=== PATIENT | female | born 1980 | race Asian ===

== ENCOUNTER 2018-08-25 10:35 | Inpatient (IN) ==
[2018-08-25] MEDS ORDERED: ONDANSETRON INJ 2 MG/ML 2 ML VIAL IV STA (11:29)
[2018-08-25] MEDS ORDERED: MoRPHine SULFATE 4 MG/ML 1 ML CARP\\VIAL IV STA (11:29)
[2018-08-25] MEDS ORDERED: SODIUM CHLORIDE 0.9% 1000ML 1,000 ML IV ONE (11:29)
[2018-08-25 12:02] LABS: Basophils # (auto) 0.01 K/uL (0-0.2); Basophils % (auto) 0.1 %; Hemoglobin 11.7 g/dL (12.0-16.0); Immature Granulocytes # (auto) 0.02 K/uL (0.00-0.02); Immature Granulocytes % (auto) 0.2 %; Lymphocytes # (auto) 0.58 K/uL (1.2-3.4); Lymphocytes % (auto) 5.5 %; Mean Corpuscular Hgb Conc 33.4 g/dL (32-36); Mean Corpuscular Volume 91.6 fL (80-100); Mean Platelet Volume 8.9 fL (7.4-10.4); Monocytes # (auto) 0.36 K/uL (0.11-0.59); Monocytes % (auto) 3.4 %; Neutrophils # (auto) 9.59 K/uL (1.4-6.5); Neutrophils % (auto) 90.8 %; Platelet Count 287 K/uL (130-400); RDW Coefficient of Variation 12.9 % (11.5-14.5); RDW Standard Deviation 43.1 fL (36.4-46.3); Red Blood Count 3.82 M/uL (4.2-5.4); White Blood Count 10.56 K/uL (4.8-10.8)
[2018-08-25 12:18] LABS: Alanine Aminotransferase 15 U/L (12-78); Albumin Level 3.6 gm/dl (3.4-5.0); Aspartate Aminotransferase 12 U/L (15-37); BUN Creatinine Ratio 22.3 (10-20); Blood Urea Nitrogen 15 mg/dl (7-18); Calcium 8.3 mg/dl (8.5-10.1); Carbon Dioxide 24 mmol/L (21-32); Chloride 105 mmol/L (98-107); Est GFR (African American) 126.2; Est GFR (Non-African American) 108.9; Glucose 101 mg/dl (70-99); Sodium 138 mmol/L (136-145)
[2018-08-25 12:22] LABS: Albumin Globulin Ratio 1.1 (0.9-2); Alkaline Phosphatase 38 U/L (45-117); Bilirubin,Total 1.7 mg/dl (0.2-1); Globulin 3.3 gm/dl (2.5-4.0); Total Protein 6.9 gm/dl (6.4-8.2); Troponin I < 0.015 ng/ml (0-0.045)
[2018-08-25 12:24] LABS: Prothrombin Time 10.4 Seconds (9.0-12.0)
[2018-08-25] MEDS ORDERED: IOVERSOL 100ml IV PRN (12:32)
[2018-08-25 12:34] LABS: D Dimer 3750 ug/L FEU (0-500)
--- NOTE | 2018-08-25 12:34 | Emergency Department Note ---
History of Present Illness General Chief complaint: Abdominal Pain Stated complaint: DIZZY,STOMACH PAIN,VOMITING,DEHYDRATION,HTN Time Seen by Provider: 08/25/18 10:50 History of Present Illness Maximum Pain Intensity: 8 38-year-old female who presents to emergency department for evaluation of epigastric pain, projectile vomiting, headache, dizziness and feeling dehydrated. The patient reports that her symptoms started yesterday afternoon, and have progressively worsened. The patient reports that she has been chilled, but has not checked her temperature. The patient reports that she had similar symptoms approximately 2 weeks ago as well, but symptoms did improve. The patient denies any recent constipation or diarrhea. She also denies any dark stools, coffee-ground emesis, chest pain, shortness of breath or urinary symptoms. The patient denies . 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 She denies prior history of GERD or peptic ulcers. The patient currently rates her discomfort an 8 out of 10. The patient was seen at [facility] this morning, and referred to the emergency department for further evaluation. Home Medications Home Medications Medication Instructions Recorded Confirmed Type No Known Home Medications 08/25/18 08/25/18 History Allergies Allergy/AdvReac Type Severity Reaction Status Date / Time No Known Allergies Allergy Unverified 08/25/18 11:32 Past Med/Surg History Medical History No significant past medical history Surgical History No significant past surgical history Social History marital status: Single Current Living Situation: Alone current occupational status: student Feels Safe at Home: Yes Smoking Status: Never smoker Hx Alcohol Use: No Hx Substance Use: No Review of Systems HEENT: Denies visual problems, hearing loss, tinnitus. Denies difficulty swallowing or oral lesions. PULMONARY: Denies recent cough, shortness of breath, sputum production or hemoptysis. CARDIOVASCULAR: Denies recent palpitations, dyspnea on exertion, orthopnea or peripheral edema. GASTROINTESTINAL: Denies recent diarrhea or constipation, otherwise see HPI. GENITOURINARY: Denies dysuria, frequency, urgency or nocturia. NEUROLOGIC: Denies history of epilepsy, CVA, TIA or chronic headaches. MUSCULOSKELETAL: Denies history of joint tenderness/swelling. SKIN: Denies rashes or lesions. PSYCHIATRIC: Denies history of depression or mental illness. ENDOCRINE: Denies history of diabetes or thyroid disorders. Physical Exam Vital Signs Vital Signs - 24 hr 08/25/18 10:47 08/25/18 10:55 08/25/18 11:00 Temperature 36.7 C Temperature Source Oral Sepsis Recent Fever Within 48 Hours No Sepsis New/Unexplained Change in Mental Status No Sepsis Action Taken by Nursing No Action Required End-Tidal CO2 12 15 Pulse Rate 97 H 102 H 94 H Pulse Rate [Finger] Pulse Rate from SpO2 Sensor 103 H 97 H Respiratory Rate 20 Blood Pressure 113/59 L 113/59 L Blood Pressure [Right Arm] Blood Pressure Mean 77 77 Blood Pressure Mean [Right Arm] Blood Pressure Position Lying Pulse Oximetry 100 100 98 Oxygen Delivery Method Room Air 08/25/18 11:01 08/25/18 11:10 08/25/18 11:15 Temperature Temperature Source Sepsis Recent Fever Within 48 Hours Sepsis New/Unexplained Change in Mental Status Sepsis Action Taken by Nursing End-Tidal CO2 19 23 26 Pulse Rate 96 H 92 H 87 Pulse Rate [Finger] Pulse Rate from SpO2 Sensor 96 H 93 H 87 Respiratory Rate Blood Pressure 94/73 L 99/66 L Blood Pressure [Right Arm] Blood Pressure Mean 80 77 Blood Pressure Mean [Right Arm] Blood Pressure Position Pulse Oximetry 100 97 98 Oxygen Delivery Method 08/25/18 11:20 08/25/18 11:30 08/25/18 11:40 Temperature Temperature Source Sepsis Recent Fever Within 48 Hours Sepsis New/Unexplained Change in Mental Status Sepsis Action Taken by Nursing End-Tidal CO2 30 36 33 Pulse Rate 87 90 89 Pulse Rate [Finger] Pulse Rate from SpO2 Sensor 87 90 90 Respiratory Rate Blood Pressure 98/69 L Blood Pressure [Right Arm] Blood Pressure Mean 78 Blood Pressure Mean [Right Arm] Blood Pressure Position Pulse Oximetry 97 98 99 Oxygen Delivery Method Room Air Room Air 08/25/18 11:45 08/25/18 11:50 08/25/18 12:00 Temperature Temperature Source Sepsis Recent Fever Within 48 Hours Sepsis New/Unexplained Change in Mental Status Sepsis Action Taken by Nursing End-Tidal CO2 30 34 32 Pulse Rate 102 H 95 H 89 Pulse Rate [Finger] Pulse Rate from SpO2 Sensor 102 H 94 H 88 Respiratory Rate Blood Pressure 102/67 98/67 L Blood Pressure [Right Arm] Blood Pressure Mean 78 77 Blood Pressure Mean [Right Arm] Blood Pressure Position Pulse Oximetry 98 98 98 Oxygen Delivery Method Room Air Room Air Room Air 08/25/18 12:10 08/25/18 12:15 08/25/18 12:20 Temperature Temperature Source Sepsis Recent Fever Within 48 Hours Sepsis New/Unexplained Change in Mental Status Sepsis Action Taken by Nursing End-Tidal CO2 33 34 34 Pulse Rate 90 87 88 Pulse Rate [Finger] Pulse Rate from SpO2 Sensor 90 88 88 Respiratory Rate Blood Pressure 99/62 L Blood Pressure [Right Arm] Blood Pressure Mean 74 Blood Pressure Mean [Right Arm] Blood Pressure Position Pulse Oximetry 97 97 97 Oxygen Delivery Method Room Air Room Air Room Air 08/25/18 12:30 08/25/18 12:40 08/25/18 12:50 Temperature Temperature Source Sepsis Recent Fever Within 48 Hours Sepsis New/Unexplained Change in Mental Status Sepsis Action Taken by Nursing End-Tidal CO2 Pulse Rate 99 H 99 H Pulse Rate [Finger] Pulse Rate from SpO2 Sensor 98 H 98 H Respiratory Rate Blood Pressure Blood Pressure [Right Arm] Blood Pressure Mean Blood Pressure Mean [Right Arm] Blood Pressure Position Pulse Oximetry 99 100 Oxygen Delivery Method Room Air Room Air Room Air 08/25/18 13:00 08/25/18 13:10 08/25/18 13:17 Temperature Temperature Source Sepsis Recent Fever Within 48 Hours Sepsis New/Unexplained Change in Mental Status Sepsis Action Taken by Nursing End-Tidal CO2 Pulse Rate 88 86 88 Pulse Rate [Finger] 87 Pulse Rate from SpO2 Sensor 89 87 88 Respiratory Rate 20 Blood Pressure 93/56 L Blood Pressure [Right Arm] 93/56 L Blood Pressure Mean 68 Blood Pressure Mean [Right Arm] 68 Blood Pressure Position Pulse Oximetry 99 98 99 Oxygen Delivery Method Room Air Room Air Room Air 08/25/18 13:20 08/25/18 13:30 08/25/18 13:40 Temperature Temperature Source Sepsis Recent Fever Within 48 Hours Sepsis New/Unexplained Change in Mental Status Sepsis Action Taken by Nursing End-Tidal CO2 Pulse Rate 88 86 84 Pulse Rate [Finger] Pulse Rate from SpO2 Sensor 88 87 85 Respiratory Rate Blood Pressure 92/55 L 92/55 L Blood Pressure [Right Arm] Blood Pressure Mean 67 67 Blood Pressure Mean [Right Arm] Blood Pressure Position Pulse Oximetry 98 99 99 Oxygen Delivery Method Room Air Room Air Room Air 08/25/18 13:45 08/25/18 13:50 08/25/18 14:00 Temperature Temperature Source Sepsis Recent Fever Within 48 Hours Sepsis New/Unexplained Change in Mental Status Sepsis Action Taken by Nursing End-Tidal CO2 Pulse Rate 87 86 85 Pulse Rate [Finger] Pulse Rate from SpO2 Sensor 87 88 85 Respiratory Rate Blood Pressure 89/58 L 94/60 L Blood Pressure [Right Arm] Blood Pressure Mean 68 71 Blood Pressure Mean [Right Arm] Blood Pressure Position Pulse Oximetry 99 99 99 Oxygen Delivery Method Room Air Room Air Room Air 08/25/18 14:10 08/25/18 14:15 08/25/18 14:20 Temperature Temperature Source Sepsis Recent Fever Within 48 Hours Sepsis New/Unexplained Change in Mental Status Sepsis Action Taken by Nursing End-Tidal CO2 Pulse Rate 84 89 82 Pulse Rate [Finger] Pulse Rate from SpO2 Sensor 83 88 85 Respiratory Rate Blood Pressure 89/58 L Blood Pressure [Right Arm] Blood Pressure Mean 68 Blood Pressure Mean [Right Arm] Blood Pressure Position Pulse Oximetry 98 99 98 Oxygen Delivery Method Room Air Room Air Room Air 08/25/18 15:05 08/25/18 15:10 08/25/18 15:15 Temperature Temperature Source Sepsis Recent Fever Within 48 Hours Sepsis New/Unexplained Change in Mental Status Sepsis Action Taken by Nursing End-Tidal CO2 Pulse Rate 83 86 93 H Pulse Rate [Finger] 82 Pulse Rate from SpO2 Sensor 84 87 93 H Respiratory Rate 12 Blood Pressure 96/58 L 91/63 L Blood Pressure [Right Arm] 96/58 L Blood Pressure Mean 70 72 Blood Pressure Mean [Right Arm] 70 Blood Pressure Position Pulse Oximetry 98 98 99 Oxygen Delivery Method Room Air 08/25/18 15:20 08/25/18 15:30 08/25/18 15:40 Temperature Temperature Source Sepsis Recent Fever Within 48 Hours Sepsis New/Unexplained Change in Mental Status Sepsis Action Taken by Nursing End-Tidal CO2 Pulse Rate 89 84 82 Pulse Rate [Finger] Pulse Rate from SpO2 Sensor 89 84 83 Respiratory Rate Blood Pressure 85/60 L Blood Pressure [Right Arm] Blood Pressure Mean 68 Blood Pressure Mean [Right Arm] Blood Pressure Position Pulse Oximetry 98 99 100 Oxygen Delivery Method 08/25/18 15:45 08/25/18 15:50 08/25/18 16:00 Temperature Temperature Source Sepsis Recent Fever Within 48 Hours Sepsis New/Unexplained Change in Mental Status Sepsis Action Taken by Nursing End-Tidal CO2 Pulse Rate 79 76 81 Pulse Rate [Finger] Pulse Rate from SpO2 Sensor 78 76 80 Respiratory Rate Blood Pressure 89/56 L 82/57 L Blood Pressure [Right Arm] Blood Pressure Mean 67 65 Blood Pressure Mean [Right Arm] Blood Pressure Position Pulse Oximetry 100 99 100 Oxygen Delivery Method CONSTITUTIONAL: Healthy and well nourished. Alert and oriented X 3. Patient appears in moderate discomfort. HEENT: Normocephalic, atraumatic. Pupils equal, round and reactive. No scleral icterus or conjunctival injection/pallor. Mucous membranes are dry. NECK: Full active range of motion without discomfort. LYMPHATICS: No cervical chain adenopathy. RESPIRATORY: Clear to auscultation bilaterally with no wheezing, crackles, rhonchi or stridor. CARDIOVASCULAR: Regular rate and rhythm with no murmurs, rubs or gallops. GASTROINTESTINAL: Bowel sounds are hypoactive. Epigastric tenderness to palpation is noted without obvious hepatosplenomegaly. Negative CVA tenderness. Negative McBurney's point tenderness. No abdominal rigidity, guarding or rebound. MUSCULOSKELETAL: Full range of motion of all joints without discomfort. INTEGUMENTARY: No rash or other significant dermatologic conditions noted. HEMATOLOGIC: No ecchymosis or petechiae. PSYCHIATRIC: Positive affect. NEUROLOGIC: No focal neurologic deficits noted. Course Patient history and physical exam were performed. Nurse's notes were reviewed. Vital signs were reviewed, showing a blood pressure of 98/67. The patient does not recall what her baseline blood pressure is. IV access was established, and labs were drawn. The patient was hydrated with a liter normal saline, and was administered IV Zantac and Zofran. An ECG shows inverted T waves in anteroseptal leads. With GI etiology suspected, CT of the abdomen and pelvis with IV contrast was ordered. It was only after the CT was performed that labs were completed, showing an elevated d-dimer. CT scan of the abdomen and pelvis shows wall thickening of multiple small bowel loops, consistent with a nonspecific enteritis. The patient did report improvement of symptoms with IV medications and IV hydration. Further review of labs also shows a hypokalemia with potassium of 3. The case was then discussed with Dr. Blackman, ED attending physician, who indicated that the patient may benefit from observation and further CT angiography to be performed tomorrow. He did recommend that I confirm this with our radiologist regarding timing from IV contrast studies of the abdomen and CT angiography. I then discussed the case further with Dr. Coleman who also c onfirmed that they would rather wait [address] angiography of the chest to rule out pulmonary embolus. The case was then further discussed with Dr. Tobias, [facility] hospitalist, for further reevaluation. Please see her dictation for further treatment and final di sposition. The patient was ordered potassium chloride 20 mEq via K rider infusion prior to transfer of care. Administered Medications Potassium Acetate 20 meq/ (Sodium Chloride) 110 mls @ 55 mls/hr IV Q2H CRISS Stop: 08/25/18 19:44 Last Admin: 08/25/18 16:19 Dose: 55 mls/hr Documented by: [id number] Ioversol (Optiray 320 100ml) 92 ml IV ONCE PRN PRN Reason: Interaction Checking Stop: 08/29/18 12:31 Last Admin: 08/25/18 12:33 Dose: 92 ml Documented by: [id number] Discontinued Medications Ranitidine HCl 50 mg/ Dextrose 102 mls @ 200 mls/hr IV NOW STA Stop: 08/25/18 11:59 Last Infusion: 08/25/18 12:19 Dose: 0 mls/hr Documented by: [id number] Admin: 08/25/18 11:48 Dose: 200 mls/hr Documented by: [id number] Sodium Chloride (Nss 1000ml) 1,000 mls @ 999 mls/hr IV .Q1H1M ONE Stop: 08/25/18 12:29 Last Infusion: 08/25/18 13:15 Dose: 0 mls/hr Documented by: [id number] Admin: 08/25/18 11:30 Dose: 999 mls/hr Documented by: [id number] Morphine Sulfate (Morphine Sulfate) 4 mg IV NOW STA Stop: 08/25/18 11:30 Last Admin: 08/25/18 13:20 Dose: Not Given Documented by: [id number] Ondansetron HCl (Zofran) 4 mg IV NOW STA Stop: 08/25/18 11:30 Last Admin: 08/25/18 11:48 Dose: 4 mg Documented by: [id number] Medical Decision Making Medical Records Attestation: I reviewed the patient's medical records. Home Medications Current Medication List: was personally reviewed by ia Laboratory Data Attestation: I reviewed the patient's lab results. Result diagrams: 08/25/18 11:46 08/25/18 11:46 Lab Results 08/25/18 08/25/18 08/25/18 Range/Units 11:46 11:46 11:46 WBC 10.56 (4.8-10.8) K/uL RBC 3.82 L (4.2-5.4) M/uL Hgb 11.7 L (12.0-16.0) g/dL Hct 35.0 L (37-47) % MCV 91.6 (80-100) fL MCH 30.6 (25-34) pg MCHC 33.4 (32-36) g/dL RDW Std Deviation 43.1 (36.4-46.3) fL RDW Coeff of Franky 12.9 (11.5-14.5) % Plt Count 287 (130-400) K/uL MPV 8.9 (7.4-10.4) fL Immature Gran % (Auto) 0.2 % Neut % (Auto) 90.8 % Lymph % (Auto) 5.5 % Rice % (Auto) 3.4 % Eos % (Auto) 0.0 % Baso % (Auto) 0.1 % Immature Gran # (Auto) 0.02 (0.00-0.02) K/uL Neut # (Auto) 9.59 H (1.4-6.5) K/uL Lymph # (Auto) 0.58 L (1.2-3.4) K/uL Rice # (Auto) 0.36 (0.11-0.59) K/uL Eos # (Auto) 0.00 (0-0.5) K/uL Baso # (Auto) 0.01 (0-0.2) K/uL PT 10.4 (9.0-12.0) Seconds INR 1.0 (0.9-1.1) D-Dimer 3750 H* (0-500) ug/L FEU Sodium 138 (136-145) mmol/L Potassium 3.0 L (3.5-5.1) mmol/L Chloride 105 (98-107) mmol/L Carbon Dioxide 24 (21-32) mmol/L Anion Gap 8.0 (3-11) BUN 15 (7-18) mg/dl Creatinine 0.69 (0.6-1.2) mg/dl Est Cr Clr Drug Dosing Not Reportable Est GFR ( Amer) 126.2 Est GFR (Non-Af Amer) 108.9 BUN/Creatinine Ratio 22.3 H (10-20) Glucose 101 H (70-99) mg/dl Calcium 8.3 L (8.5-10.1) mg/dl Total Bilirubin 1.7 H (0.2-1) mg/dl AST 12 L (15-37) U/L ALT 15 (12-78) U/L Alkaline Phosphatase 38 L (45-117) U/L Troponin I < 0.015 (0-0.045) ng/ml Total Protein 6.9 (6.4-8.2) gm/dl Albumin 3.6 (3.4-5.0) gm/dl Globulin 3.3 (2.5-4.0) gm/dl Albumin/Globulin Ratio 1.1 (0.9-2) Lipase 157 (73-393) U/L Urine Color Urine Appearance (Clear) Urine pH (4.5-7.5) Ur Specific Agra (1.000-1.030) Urine Protein (Negative) Urine Glucose (UA) (Negative) Urine Ketones (Negative) Urine Blood (Negative) Urine Nitrite (Negative) Urine Bilirubin (Negative) Urine Urobilinogen (Negative) Ur Leukocyte Esterase (Negative) 08/25/18 Range/Units 17:50 WBC (4.8-10.8) K/uL RBC (4.2-5.4) M/uL Hgb (12.0-16.0) g/dL Hct (37-47) % MCV (80-100) fL MCH (25-34) pg MCHC (32-36) g/dL RDW Std Deviation (36.4-46.3) fL RDW Coeff of Franky (11.5-14.5) % Plt Count (130-400) K/uL MPV (7.4-10.4) fL Immature Gran % (Auto) % Neut % (Auto) % Lymph % (Auto) % Rice % (Auto) % Eos % (Auto) % Baso % (Auto) % Immature Gran # (Auto) (0.00-0.02) K/uL Neut # (Auto) (1.4-6.5) K/uL Lymph # (Auto) (1.2-3.4) K/uL Rice # (Auto) (0.11-0.59) K/uL Eos # (Auto) (0-0.5) K/uL Baso # (Auto) (0-0.2) K/uL PT (9.0-12.0) Seconds INR (0.9-1.1) D-Dimer (0-500) ug/L FEU Sodium (136-145) mmol/L Potassium (3.5-5.1) mmol/L Chloride (98-107) mmol/L Carbon Dioxide (21-32) mmol/L Anion Gap (3-11) BUN (7-18) mg/dl Creatinine (0.6-1.2) mg/dl Est Cr Clr Drug Dosing Est GFR ( Amer) Est GFR (Non-Af Amer) BUN/Creatinine Ratio (10-20) Glucose (70-99) mg/dl Calcium (8.5-10.1) mg/dl Total Bilirubin (0.2-1) mg/dl AST (15-37) U/L ALT (12-78) U/L Alkaline Phosphatase (45-117) U/L Troponin I (0-0.045) ng/ml Total Protein (6.4-8.2) gm/dl Albumin (3.4-5.0) gm/dl Globulin (2.5-4.0) gm/dl Albumin/Globulin Ratio (0.9-2) Lipase (73-393) U/L Urine Color Yellow Urine Appearance Clear (Clear) Urine pH 6.0 (4.5-7.5) Ur Specific Agra > 1.045 H (1.000-1.030) Urine Protein Negative (Negative) Urine Glucose (UA) Negative (Negative) Urine Ketones Trace H (Negative) Urine Blood Negative (Negative) Urine Nitrite Negative (Negative) Urine Bilirubin Negative (Negative) Urine Urobilinogen Negative (Negative) Ur Leukocyte Esterase Negative (Negative) Imaging Data Attestation: I personally reviewed and interpreted this imaging study as follows: My Impression: Interpretation of the CT scan of the abdomen and pelvis with IV contrast is consistent with a generalized enteritis without evidence for obstruction. Appendix is also visualized and is normal. Radiologist report was also reviewed. Radiologist's Impression: CT OF THE ABDOMEN AND PELVIS WITH CONTRAST CLINICAL HISTORY: Epigastric pain. COMPARISON STUDY: None. TECHNIQUE: Following IV administration of 92 mL of Optiray-320, axial images of the abdomen and pelvis were obtained from the lung bases to the proximal femurs. Images were reviewed in the axial, sagittal, and coronal planes. IV contrast was administered without complication. Automated exposure control was utilized for the study. A dose lowering technique was utilized adhering to the principles of ALARA. CT DOSE: 283.99 mGy.cm FINDINGS: A 4 mm left lower lobe nodule on image 31 of 456 is likely benign. A few smaller nodules within the lower lungs are noted. The liver, spleen, adrenal glands, kidneys and pancreas are unremarkable. There is no biliary or pancreatic ductal dilatation. No peripancreatic or pericholecystic infiltration. No hydronephrosis is present. The appendix is normal. Caliber of small and large bowel are normal. There is apparent focal thickening of several small bowel loops. This could be due to underdistention. A dominant follicle within the right ovary is noted. There is trace fluid within the pelvis which is likely physiologic. No lymphadenopathy is present. There are no suspicious skeletal lesions. IMPRESSION: 1. Normal appendix. No bowel obstruction. 2. Apparent wall thickening of multiple small bowel loops which favors a nonspecific enteritis. Blood Pressure Blood Pressure Findings: Low blood pressure MDM Narrative I suspect that the patient's symptoms are likely secondary to generalized enteritis, however with a significantly elevated d-dimer, pulmonary embolus must be ruled out. Venous ultrasound of the lower extremities does not show any DVT. The patient also does not have any other significant risk factors for PE. ECG does show some inverted T waves in anteroseptal leads, otherwise troponin is normal. I therefore do not suspect myocardial infarction. Patient has a mild hypokalemia likely secondary to her vomiting. Impression & Plan Gastroenteritis, Elevated d-dimer, Acute epigastric pain Discharge Plan Visit Data Chief Complaint: Abdominal Pain Stated Complaint: DIZZY,STOMACH PAIN,VOMITING,DEHYDRATION,HTN ED Provider: Woody Blackman ED Midlevel Provider: Sandip Dial Discharge Problem: Gastroenteritis, Elevated d-dimer, Acute epigastric pain Patient Disposition: Being Evaluated by Hospitalist Forms Stand Alone Forms: Call Back Authorization, My [facility] Prescriptions Prescriptions: No Action No Known Home Medications RF: 0 Referrals [facility]: [facility] [Primary Care Provider] -
--- NOTE | 2018-08-25 12:46 | CT Scan Report ---
CT OF THE ABDOMEN AND PELVIS WITH CONTRAST CLINICAL HISTORY: Epigastric pain. COMPARISON STUDY: None. TECHNIQUE: Following IV administration of 92 mL of Optiray-320, axial images of the abdomen and pelvi s were obtained from the lung bases to the proximal femurs. Images were reviewed in the axial, sagitt al, and coronal planes. IV contrast was administered without complication. Automated exposure contro l was utilized for the study. A dose lowering technique was utilized adhering to the principles of A LORENZO. CT DOSE: 283.99 mGy.cm FINDINGS: A 4 mm left lower lobe nodule on image 31 of 456 is likely benign. A few smaller nodules wi thin the lower lungs are noted. The liver, spleen, adrenal glands, kidneys and pancreas are unremarka ble. There is no biliary or pancreatic ductal dilatation. No peripancreatic or pericholecystic infilt ration. No hydronephrosis is present. The appendix is normal. Caliber of small and large bowel are no rmal. There is apparent focal thickening of several small bowel loops. This could be due to underdist ention. A dominant follicle within the right ovary is noted. There is trace fluid within the pelvis w hich is likely physiologic. No lymphadenopathy is present. There are no suspicious skeletal lesions. IMPRESSION: 1. Normal appendix. No bowel obstruction. 2. Apparent wall thickening of multiple small bowel loops which favors a nonspecific enteritis. Electronically signed by: Gerson Arellano M.D. 08/25/2018 12:45 PM
--- NOTE | 2018-08-25 14:52 | Ultrasound Report ---
BILATERAL LOWER EXTREMITY VENOUS DOPPLER HISTORY: R/O DVT - elevated d-dimer, enteritis COMPARISON STUDY: None. FINDINGS: There is normal compressibility, flow, and augmentation within the bilateral lower extremit y deep venous systems. IMPRESSION: No DVT within the right or left lower extremity. Electronically signed by: Gallo Coleman M.D. 08/25/2018 2:50 PM
[2018-08-25] MEDS: POTASSIUM ACETATE 20 MEQ in 0.9 % SODIUM CHLORIDE 100 ML IV SCH ×2 (16:19→22:42)
[2018-08-25] MEDS ORDERED: SODIUM CHLORIDE 0.9% 1000ML 1,000 ML IV STA (16:36)
[2018-08-25] MEDS ORDERED: ONDANSETRON INJ 2 MG/ML 2 ML VIAL IV PRN ×2 (16:47→22:27)
[2018-08-25 18:11] LABS: Appearance Urine Clear (Clear); Bilirubin Urine Negative (Negative); Blood Urine Negative (Negative); Color Urine Yellow; Glucose Urine UA Negative (Negative); Ketones Urine Trace (Negative); Leukocyte Esterase Urine Negative (Negative); Nitrite Urine Negative (Negative); Protein Urine Negative (Negative); Specific Gravity Urine > 1.045 (1.000-1.030); Urobilinogen Urine Negative (Negative)
[2018-08-25] MEDS: CIPROFLOXACIN 400 MG/200 ML BAG IV SCH (19:00)
[2018-08-25] MEDS: metroNIDAZOLE 500 MG/100 ML BAG IV SCH (19:01)
--- NOTE | 2018-08-25 22:01 | History & Physical Report ---
Date of Service August 25, 2018 Assessment & Plan (1) Elevated d-dimer: Elevated D-Dimer level --- nonspecific inflammatory marker, could be due o PE vs acute inflammatory state vs infectious. Would check CT Angiogram in 24hours after adequate fluid hydration to prevent renal failure. Since lower extremity doppler is negative, and patient is stable from respiratory standpoint; normal pule oxygen and respiratory rate without any complaints of pleuritic chest pain or shortness breath, would treat with prophylactic dose of Lovenox for now and monitor closely. (2) Gastroenteritis: possible 2/2 viral vs bacterial infection. continue with supportive therapy with IV fluid, antiemetics, pain control. Empiric IV abx with cipro and flagyl (3) Hypokalemia: repleted (4) Dehydration: aggressive IV fluid resuscitation (5) Acute epigastric pain: (6) EKG abnormalities: likely due to electrolyte abnormalities. trend cardiac enzymes with serial EKG. Check chest xray to further evaluate. (7) Hypotension: improving with IV fluid hydration History of Present Illness Chief Complaint: nausea, vomiting and dizziness Primary Care Provider: [facility] Patient is a 38-year-old female with no past medical history who is a was sent to the ED from [place] [facility] for evaluation of epigastric pain nausea and vomiting weakness and dizziness x1 day. Patient reports symptoms of projectile vomiting nonbloody emesis and epigastric pain which started suddenly one day prior to admission. She admits to similar symptoms 2 weeks ago but had resolved without any intervention. Patient denies any diarrhea or constipation or chest pain or recent travel or sick contacts. 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 She denies chest discomfort or pleuritic pain or difficulty breathing. She denies prolonged period of immobilization or travel history. No history of blood clots or hypercoaguable disorder. In the ED, she noted to be hypotensive with SBP ~80's adn tachycardic, improved after IV fluid boluses. Lab work showed WBC - 10.5, Hgb- 11.7, potassium - 3.0, Na- 138, BUN- 15, Cr- 0.69 Tbili- 1.7 , AST / ALT/ Lipase were normal troponin normal; urinalysis was negative. D DIMER elevated at 3750 EKG showed inverted T wave in anteroseptal lead. CT scan of ABD/pelvis with contrast showed normal appendix and pancreas, kidneys, liver and spleen; mild wall thickening in the small bowel loops possible enteritis. lower extremity doppler was negative. Due to elevated D Dimer, patient was scheduled to get CT angiogram to rule out PE however she unable to get repeated doses of IV contrast until after 24 - 48 hours. 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: No Beliefs That Will Affect Care: None marital status: Single Current Living Situation: Other Current Living Situation Comment: Roommated current occupational status: student Other Information That Helps Us Care for You: No Feels Safe at Home: Yes Safety Concerns: Feels Safe At This Time Smoking Status: Never smoker Hx Alcohol Use: Yes Alcohol type: beer Hx Substance Use: No Review of Systems Constitutional: + fever, + chills, + body aches and + malaise Eyes: no eye pain, no loss of peripheral vision and no photophobia Ear, Nose, Mouth, Throat: + dizziness; no ear pain, no ear trauma, no hearing loss and no facial pain Respiratory: no change in sputum, no dyspnea, no dyspnea on exertion, no hemoptysis, no pain on inspiration and no pain with cough Cardiovascular: + palpitations and + lightheadedness; no chest pain, no chest pain with activity, no radiating jaw, neck or arm pain, no dyspnea and no dyspne a at rest Gastrointestinal: + abdominal pain, + nausea, + vomiting and + cramping; no hematemesis and no diarrhea/loose stools Genitourinary: no urinary frequency, no urinary hesitancy, no urinary urgency, no urinary incontinence and no hematuria Musculoskeletal: no back pain, no radicular pain and no swelling Integumentary: no rash Neurologic: no falls, no localized weakness and no numbness Psychiatric: + anxiety Physical Exam Constitutional: WD/WN, vitals as above + thin Eyes: PERRL, conjunctivae normal, anicteric sclerae ENMT: external ear and nose normal, oropharynx normal Neck: trachea midline, no thyromegaly Respiratory: normal respiratory effort, lungs clear to auscultation Cardiovascular: RRR, no murmur, no edema Heart Sounds: normal S1 and normal S2 Gastrointestinal (Abdomen): normal bowel sounds, soft, nontender, no hepatosplenomegaly Musculoskeletal: no cyanosis or clubbing, extremities motor strength 5/5 Skin: no rashes, warm and dry Neurologic: PERRL, EOMI, accommodation nl, no face palsy, no dysarthria Psychiatric: Affect: + labile affect Results & Data Vital Signs (Past 12 Hours) Vital Signs Temp Pulse Pulse Resp BP BP Pulse Ox 08/25/18 21:35 36.4 C L 84 18 98/65 L 98 08/25/18 21:00 89 18 99/67 L 97 08/25/18 20:29 78 18 91/66 L 100 08/25/18 18:50 85 18 92/62 L 99 08/25/18 18:30 92 H 87/52 L 100 08/25/18 18:20 88 99 08/25/18 18:15 90 93/66 L 99 08/25/18 18:10 89 99 08/25/18 18:00 98 H 92/63 L 98 08/25/18 17:50 85 98 08/25/18 17:45 79 99/53 L 99 08/25/18 17:40 85 98 08/25/18 17:30 84 95/66 L 98 08/25/18 17:20 85 99 08/25/18 17:15 90 97/61 L 100 08/25/18 17:10 86 98 08/25/18 17:00 103 H 95/67 L 98 08/25/18 16:50 97 H 98 08/25/18 16:45 86 96/62 L 100 08/25/18 16:40 86 98 08/25/18 16:30 85 94/69 L 99 08/25/18 16:20 80 98 08/25/18 16:18 85 96/58 L 99 08/25/18 16:10 100 07/10/19 16:00 81 82/57 L 100 08/25/18 15:50 76 99 08/25/18 15:45 79 89/56 L 100 08/25/18 15:40 82 100 08/25/18 15:30 84 85/60 L 99 08/25/18 15:20 89 98 08/25/18 15:15 93 H 91/63 L 99 08/25/18 15:10 86 98 08/25/18 15:05 83 82 12 96/58 L 96/58 L 98 08/25/18 14:20 82 98 08/25/18 14:15 89 89/58 L 99 08/25/18 14:10 84 98 08/25/18 14:00 85 94/60 L 99 08/25/18 13:50 86 99 08/25/18 13:45 87 89/58 L 99 08/25/18 13:40 84 92/55 L 99 08/25/18 13:30 86 92/55 L 99 08/25/18 13:20 88 98 08/25/18 13:17 88 87 20 93/56 L 93/56 L 99 08/25/18 13:10 86 98 08/25/18 13:00 88 99 08/25/18 12:50 99 H 100 08/25/18 12:40 99 H 99 08/25/18 12:20 88 97 08/25/18 12:15 87 99/62 L 97 08/25/18 12:10 90 97 08/25/18 12:00 89 98/67 L 98 08/25/18 11:50 95 H 98 08/25/18 11:45 102 H 102/67 98 08/25/18 11:40 89 99 08/25/18 11:30 90 98/69 L 98 08/25/18 11:20 87 97 08/25/18 11:15 87 99/66 L 98 08/25/18 11:10 92 H 97 08/25/18 11:01 96 H 94/73 L 100 08/25/18 11:00 94 H 98 08/25/18 10:55 102 H 113/59 L 100 08/25/18 10:47 36.7 C 97 H 20 113/59 L 100 Laboratory Results 08/25/18 11:46 08/25/18 11:[address] OF THE ABDOMEN AND PELVIS WITH CONTRAST CLINICAL HISTORY: Epigastric pain. COMPARISON STUDY: None. TECHNIQUE: Following IV administration of 92 mL of Optiray-320, axial images of the abdomen and pelvis were obtained from the lung bases to the proximal femurs. Images were reviewed in the axial, sagittal, and coronal planes. IV contrast was administered without complication. Automated exposure control was utilized for the study. A dose lowering technique was utilized adhering to the principles of ALARA. CT DOSE: 283.99 mGy.cm FINDINGS: A 4 mm left lower lobe nodule on image 31 of 456 is likely benign. A few smaller nodules within the lower lungs are noted. The liver, spleen, adrenal glands, kidneys and pancreas are unremarkable. There is no biliary or pancreatic ductal dilatation. No peripancreatic or pericholecystic infiltration. No hydronephrosis is present. The appendix is normal. Caliber of small and large bowel are normal. There is apparent focal thickening of several small bowel loops. This could be due to underdistention. A dominant follicle within the right ovary is noted. There is trace fluid within the pelvis which is likely physiologic. No lymphadenopathy is present. There are no suspicious skeletal lesions. IMPRESSION: 1. Normal appendix. No bowel obstruction. 2. Apparent wall thickening of multiple small bowel loops which favors a nonspecific enteritis. BILATERAL LOWER EXTREMITY VENOUS DOPPLER HISTORY: R/O DVT - elevated d-dimer, enteritis COMPARISON STUDY: None. FINDINGS: There is normal compressibility, flow, and augmentation within the bilateral lower extremity deep venous systems. IMPRESSION: No DVT within the right or left lower extremity. PG Care Time/CCT Total # of Minutes Spent Total Time Spent with Patient: Total time spent is greater than 50% in coordination of care (as documented) at patient's floor/unit and/or counseling patient:
[2018-08-25] MEDS ORDERED: ACETAMINOPHEN 325 MG TAB PO PRN (22:27)
[2018-08-25] MEDS ORDERED: ALUMINUM/MAGNESIUM SUSP 30 ML UDC PO PRN (22:27)
[2018-08-25] MEDS ORDERED: SODIUM CHLORIDE 0.9% 1000ML 1,000 ML IV SCH (22:30)
--- NOTE | 2018-08-25 22:38 | XRay Report ---
XR chest 1V portable CLINICAL HISTORY: 38 years-old Female presenting with fever, N/V and shortness of breath. TECHNIQUE: Portable upright AP view of the chest was obtained. COMPARISON: None. FINDINGS: Cardiomediastinal silhouette normal. Prominent nipple shadows. No focal opacity. No large effusion or pneumothorax. Osseous structures normal. Upper abdomen normal. IMPRESSION: 1. No acute cardiopulmonary disease. Electronically signed by: Kurt Abraham M.D. 08/25/2018 10:36 PM
[2018-08-26] MEDS: metroNIDAZOLE 500 MG/100 ML BAG IV SCH ×2 (04:29→12:45)
[2018-08-26] MEDS: CIPROFLOXACIN 400 MG/200 ML BAG IV SCH (06:35)
[2018-08-26] MEDS ORDERED: MAGNESIUM HYDROXIDE SUSP 30 ML UDC PO PRN (06:55)
[2018-08-26] MEDS ORDERED: D5NSS + 20MEQ KCL 20 MEQ/1,000 ML BAG IV SCH (06:55)
[2018-08-26] MEDS ORDERED: ACETAMINOPHEN 325 MG TAB PO PRN (06:55)
[2018-08-26] MEDS ORDERED: KETOROLAC TROMETHAMINE 15 MG/ML VIAL IV ONE (07:56)
[2018-08-26] MEDS ORDERED: ENOXAPARIN INJ 40 MG/0.4 ML SYR SQ SCH (08:00)
[2018-08-26] MEDS ORDERED: KETOROLAC TROMETHAMINE 15 MG/ML VIAL ONE (08:04)
[2018-08-26 08:44] LABS: D Dimer 2280 ug/L FEU (0-500)
[2018-08-26 08:48] LABS: Albumin Globulin Ratio 1.1 (0.9-2); Albumin Level 3.2 gm/dl (3.4-5.0); BUN Creatinine Ratio 13.1 (10-20); Calcium 7.4 mg/dl (8.5-10.1); Creatinine Clr Calc Pharmacy 113.5 ml/min; Est GFR (African American) 136.8; Total Protein 6.2 gm/dl (6.4-8.2)
[2018-08-26] MEDS ORDERED: FAMOTIDINE 20 MG in SYRINGE 3 ML IV SCH (09:00)
[2018-08-26] MEDS ORDERED: POTASSIUM CHLORIDE 20 MEQ/15 ML UDC PO STA (10:08)
--- NOTE | 2018-08-26 13:47 | Discharge Summary ---
Date of Service August 26, 2018 Admission HPI Per Admitting Provider Patient is a 38-year-old female with no past medical history who is a was sent to the ED from [facility] for evaluation of epigastric pain nausea and vomiting weakness and dizziness x1 day. Patient reports symptoms of projectile vomiting nonbloody emesis and epigastric pain which started suddenly one day prior to admission. She admits to similar symptoms 2 weeks ago but had resolved without any intervention. Patient denies any diarrhea or constipation or chest pain or recent travel or sick contacts. 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 She denies chest discomfort or pleuritic pain or difficulty breathing. She denies prolonged period of immobilization or travel history. No history of blood clots or hypercoaguable disorder. In the ED, she noted to be hypotensive with SBP ~80's adn tachycardic, improved after IV fluid boluses. Lab work showed WBC - 10.5, Hgb- 11.7, potassium - 3.0, Na- 138, BUN- 15, Cr- 0.69 Tbili- 1.7 , AST / ALT/ Lipase were normal troponin normal; urinalysis was negative. D DIMER elevated at 3750 EKG showed inverted T wave in anteroseptal lead. CT scan of ABD/pelvis with contrast showed normal appendix and pancreas, kidneys, liver and spleen; mild wall thickening in the small bowel loops possible enteritis. lower extremity doppler was negative. Due to elevated D Dimer, patient was scheduled to get CT angiogram to rule out PE however she unable to get repeated doses of IV contrast until after 24 - 48 hours. Admission Exam (Per Admitting) Constitutional WD/WN, vitals as above + thin Eyes PERRL, conjunctivae normal, anicteric sclerae ENMT external ear and nose normal, oropharynx normal Neck trachea midline, no thyromegaly Respiratory normal respiratory effort, lungs clear to auscultation Cardiovascular RRR, no murmur, no edema Heart Sounds: normal S1 and normal S2 Gastrointestinal (Abdomen) normal bowel sounds, soft, nontender, no hepatosplenomegaly Musculoskeletal no cyanosis or clubbing, extremities motor strength 5/5 Skin no rashes, warm and dry Neurologic PERRL, EOMI, accommodation nl, no face palsy, no dysarthria Psychiatric Affect: + labile affect Discharge Data Consultations 08/25/18 14:19 ED Decision to Admit Stat Hospital Course (1) Elevated d-dimer: Elevated D-Dimer level -[facility] notes low pretest probability, nonspecific inflammatory marker, could be due to PE vs acute inflammatory state -Due to low probability, no HD instability, no symptoms indicative of PE, will defer CTAngio -Lower extremity doppler is negative (2) Gastroenteritis: possible 2/2 viral vs bacterial infection. continue with supportive therapy with fluid, antiemetics, pain control. Empiric IV abx with cipro and flagyl PO, total of 5 day course Given script for zofran Recommend BRAT diet with slow transition to regular diet (3) Hypokalemia: repleted in hospital, would recommend recheck as outpatient (4) Dehydration: aggressive IV fluid resuscitation while admitted. Discussed hydration as outpatient (5) Acute epigastric pain: (6) EKG abnormalities: (7) Hypotension: improved with IV fluid hydration States she has been symptomatic since giving blood 2 weeks ago Supervising Physician Co-Signing Physician Notes I personally examined the patient and verified all villalobos points of history and exam, discussed case, and agree with decision making with Dr Hollis. Feeling better. Still feeling a degree of gas, although eating and drinking oka y and no vomiting or diarrhea. She does not, and has not had any chest pain, shortness of breath, hemoptysis. Vitals noted, in general she is awake and alert pleasant no distress. HEENT normal cephalic atraumatic mucous members are moist. Breathing unlabored no accessory muscle use good effort. Skin shows no rashes no pallor or icterus. Her PE clinical probability score was low, and the only point that she received was based on heart rate, which was likely due to dehydration. Enteritisseem to be nonspecific food poisoning, resolved nicely with Cipro and Flagyl. Will finish out a course of treatment. Stable for home, follow-up with [facility], and if she does not quickly recover to her baseline, then may need to consider gastroenterology evaluation, but this will likely not be necessary. Elevated d-dimerno signs or symptoms of PE, risk score is low, 98% on room air. We discussed the situation, and she feels comfortable going home without a CT chest, and we discussed what types of symptoms to watch out for should she need reevaluation in this regard. Stable for home. Resident Activity Tracking Resident Involvement: Resident Care Provided Care Provided: Adult Hospital Medicine
--- NOTE | 2018-08-26 19:40 | Communication Note ---
Date of Service: August 26, 2018 pt declined use of medical translation services.
== END 2018-08-26 15:50 | disposition home or self-care (01) | DRG 948 ==
LOC: 4E 10:35 → ED 10:35 → SUATTDRO 21:00 → 4E 21:24